=== PATIENT | female | born 1995 | race Two or more races ===

== ENCOUNTER 2018-11-20 02:00 | Emergency (ER) | payer OTHER ==
[~2018-11-20] VITALS: Ht 167.6 cm; Wt 68.0 kg
[2018-11-20] MEDS ORDERED: PNEU16DI2 IM (03:27)
[2018-11-20] MEDS ORDERED: ORASEP SPRAY30 ML MM (03:27)
[2018-11-20] MEDS ORDERED: CEFUROXIME500 MG PO (03:27)
[2018-11-20] MEDS ORDERED: ALLEGRA-D 12 H1 EACH PO (03:27)
== END 2018-11-20 03:37 | disposition home or self-care (01) ==
LOC: ER 02:00
DX: J06.9 Acute upper respiratory infection, unspecified (principal)